=== PATIENT | male | born 1975 | race Caucasian/White ===

== ENCOUNTER → 2017-09-25 | Outpatient (CLI) | payer SELFPAY | LOC: M OUTALCOH 07:56 | DX: F10.20 Alcohol dependence, uncomplicated (principal) ==

== ENCOUNTER 2017-10-05 08:00 | Outpatient (RCR) | payer SELFPAY | END 2017-11-01 | LOC: M OUTALCOH 10-09 09:00 | DX: F10.20 Alcohol dependence, uncomplicated (principal); F17.200 Nicotine dependence, unspecified, uncomplicated ==

== ENCOUNTER 2017-11-02 11:57 | Outpatient (RCR) | payer MEDICAID, SELFPAY | END 2017-12-01 | LOC: M OUTALCOH 11:57 | DX: F10.20 Alcohol dependence, uncomplicated (principal); F17.200 Nicotine dependence, unspecified, uncomplicated ==

== ENCOUNTER 2017-12-03 10:51 | Outpatient (RCR) | payer SELFPAY | END 2018-01-01 | LOC: M OUTALCOH 12-10 14:00 | DX: F10.20 Alcohol dependence, uncomplicated (principal); F17.200 Nicotine dependence, unspecified, uncomplicated ==

== ENCOUNTER 2018-02-06 16:00 | Outpatient (RCR) | payer MEDICAID | END 2018-03-03 | LOC: M OUTALCOH 02-13 15:00 | DX: F10.20 Alcohol dependence, uncomplicated (principal); F17.200 Nicotine dependence, unspecified, uncomplicated ==

== ENCOUNTER 2018-03-06 16:00 | Outpatient (RCR) | payer MEDICAID | END 2018-04-03 | LOC: M OUTALCOH 16:00 | DX: F10.20 Alcohol dependence, uncomplicated (principal); F17.200 Nicotine dependence, unspecified, uncomplicated ==

== ENCOUNTER 2018-04-05 15:19 | Outpatient (RCR) | payer MEDICAID, OTHER | END 2018-05-03 | LOC: M OUTALCOH 04-08 16:00 | DX: F10.20 Alcohol dependence, uncomplicated (principal); F17.200 Nicotine dependence, unspecified, uncomplicated ==

== ENCOUNTER 2018-05-30 15:40 | Outpatient (RCR) | payer MEDICAID, OTHER | END 2018-06-03 | LOC: M OUTALCOH 15:40 | PROVIDERS: ATTEND Psychiatry & Neurology Psychiatry | DX: F10.20 Alcohol dependence, uncomplicated (principal); F17.200 Nicotine dependence, unspecified, uncomplicated ==

== ENCOUNTER 2018-06-25 15:34 | Outpatient (RCR) | payer OTHER | END 2018-07-04 | LOC: M OUTALCOH 15:34 | PROVIDERS: ATTEND Psychiatry & Neurology Psychiatry | DX: F10.20 Alcohol dependence, uncomplicated (principal); F17.200 Nicotine dependence, unspecified, uncomplicated ==

== ENCOUNTER 2018-07-12 15:32 | Outpatient (RCR) | payer OTHER | END 2018-08-01 | LOC: M OUTALCOH 15:32 | PROVIDERS: ATTEND Psychiatry & Neurology Psychiatry | DX: F10.20 Alcohol dependence, uncomplicated (principal); F17.200 Nicotine dependence, unspecified, uncomplicated ==

== ENCOUNTER 2018-08-23 13:33 | Outpatient (RCR) | payer OTHER | END 2018-09-01 | LOC: M OUTALCOH 13:33 | PROVIDERS: ATTEND Psychiatry & Neurology Psychiatry | DX: F10.20 Alcohol dependence, uncomplicated (principal); F17.200 Nicotine dependence, unspecified, uncomplicated ==

== ENCOUNTER 2018-09-27 12:51 | Outpatient (RCR) | payer OTHER | END 2018-10-01 | LOC: M OUTALCOH 12:51 | PROVIDERS: ATTEND Psychiatry & Neurology Psychiatry | DX: F10.20 Alcohol dependence, uncomplicated (principal); F17.200 Nicotine dependence, unspecified, uncomplicated ==

== ENCOUNTER → 2018-11-01 | Outpatient (RCR) | payer OTHER | LOC: M OUTALCOH 13:49 | PROVIDERS: ATTEND Psychiatry & Neurology Psychiatry | DX: F10.20 Alcohol dependence, uncomplicated (principal); F17.200 Nicotine dependence, unspecified, uncomplicated ==

== ENCOUNTER 2018-12-24 13:41 | Outpatient (RCR) | payer OTHER | END 2019-01-01 | LOC: M OUTALCOH 13:41 | PROVIDERS: ATTEND Psychiatry & Neurology Psychiatry | DX: F10.20 Alcohol dependence, uncomplicated (principal); F17.200 Nicotine dependence, unspecified, uncomplicated ==